=== PATIENT | female | born 1950 | race Caucasian/White ===

== ENCOUNTER 2017-01-23 19:55 | Emergency (ER) | payer MEDICARE, BC ==
[2017-01-23] MEDS ORDERED: oxyCODONE 5 MG Tab ONE ×2 (20:10→21:35)
[2017-01-23] MEDS ORDERED: HYDROmorphone 2 MG/ML Syringe SUBCUT ONE (20:25)
--- NOTE | 2017-01-23 20:31 | EDM.PDOC ---
ED HPI GENERAL MEDICAL PROBLEM - General Chief Complaint: General Stated Complaint: injured shoulder Time Seen by Provider: 01/23/17 20:10 Source of Information: Reports: Patient History Limitations: Reports: No Limitations - History of Present Illness INITIAL COMMENTS - FREE TEXT/NARRATIVE: According to patient she was working with her horses and the horse pushed her suddenly moving his back towards her, apparently pt was standing very close to his back. She lost control and landed on her right shoulder. She has severe pain and could not get up from the ground until her son came and helped her get up. She keep her arm adjacent to the chest wall and c/o pain in her right scapular region. No open wound, swelling or bruising around the shoulder. No other injuries. She has been able to walk, and does not have any lower back or lower extremity pain or injury. she does c/o numbness in her medial 4 finger over the dorsal aspect. No other injuries. Right Shoulder Pain Score (Numeric/FACES): 10 - Related Data Allergies Allergy/AdvReac Type Severity Reaction Status Date / Time morphine Allergy Cannot Verified 02/13/13 09:35 Remember sulfamethoxazole Allergy Rash Verified 02/13/13 09:35 [From ] trimethoprim [From ] Allergy Rash Verified 02/13/13 09:35 venom-honey bee Allergy Anaphylactic Verified 02/13/13 09:35 [bee venom (honey bee)] Shock ED ROS GENERAL - Review of Systems Review Of Systems: See Below Constitutional: Denies: Fever, Chills HEENT: Denies: Rhinitis, Throat Pain Respiratory: Denies: Cough, Sputum Cardiovascular: Denies: Chest Pain, Lightheadedness GI/Abdominal: Denies: Abdominal Pain, Nausea Musculoskeletal: Reports: Shoulder Pain (right), Back Pain (right upper), Muscle Pain. Denies: Leg Pain, Foot Pain, Muscle Stiffness Skin: Denies: Bruising, Pruritis, Rash Neurological: Denies: Confusion, Dizziness, Headache, Weakness ED EXAM, GENERAL - Physical Exam Exam: See Below Exam Limited By: No Limitations General Appearance: Alert, WD/WN, Moderate Distress (from pain) Eye Exam: Bilateral Eye: EOMI, PERRL Ears: Normal External Exam, Normal Canal, Hearing Grossly Normal, Normal TMs Nose: Normal Inspection, Normal Mucosa, No Blood Throat/Mouth: Normal Inspection, Normal Lips, Normal Teeth, Normal Gums, Normal Oropharynx, Normal Voice, No Airway Compromise Head: Atraumatic, Normocephalic Neck: Normal Inspection, Supple, Non-Tender, Full Range of Motion Respiratory/Chest: No Respiratory Distress, Lungs Clear, Normal Breath Sounds, No Accessory Muscle Use, Chest Non-Tender Cardiovascular: Normal Peripheral Pulses, Regular Rate, Rhythm, No Edema, No Gallop, No JVD, No Murmur, No Rub Extremities: Normal Inspection, Other (Right shoulder: there is no obvious deformity or swelling of the shoulder or the right upper back. Pt does hold her arm against her chest wall. refuses to move. She does have [facility] liaison. On palpation the humoral head is felt anteriorly in the axillar,she is tender over the scapular spine and the boduy of the scapula and the shoulder tip. No obvious crepitus felt. Pt does have soft tissue tenderness around the shoulder. ) Neurological: Alert, Oriented, CN II-XII Intact, Normal Cognition, Normal Gait, Normal Reflexes ED GENERAL MEDICAL PROCEDURES - Joint Reduction Site: Shoulder (R) Sedation: Conscious Sedation Pre-procedure NV status: Normal Post-procedure NV status: Normal Technique: Traction/Counter Traction Number of Attempts: 1 Post-Reduction Imaging: Completely Reduced Joint Reduction Complications: No Progress/Comments: Pt's rigth extremity placed in shoulder immobilizer. Course - Vital Signs Text/Narrative:: Xray right shoulder does shows anterior dislocation right shoulder with no fracture.After consent was obtained. Iv line was obtained and Normal drip started. Conscious sedation and reduction was discussed. Pt was placed on radiation monitor and also started on nasal canula oxygen at 2 liters per minute. 4mg of versed and 50MCG of fentanyl was used to get pt under good sedation. The joint was reduced with one attempt with a clunk. Post reduction Xray shows normal reduction and head of the humerus in place. Shoulder immobilizer applied. Once patient was awake and alert, Iv fluids and IV line was removed and planned for discharge. Pt Advised not to take the shoulder immobilizer off for 2 wks. Oxycodone 5mg 3 times daily as needed for pain. Okay to use motrin for pain, but should not have much pain now. Followup in clinic in 2 wks for recheck. Might need to start physiotherapy in 2 wks for shoulder strengthening. Advised not to ride horse until clear by physical therapy. Last Recorded V/S: Last Vital Signs Temp 96.8 F 01/23/17 20:28 Pulse 75 01/23/17 20:28 Resp 20 01/23/17 20:28 BP 177/93 H 01/23/17 20:28 Pulse Ox 100 01/23/17 20:28 - Orders/Labs/Meds Orders: Active Orders 24 hr Category Date Time Status Shoulder 1V Rt [CR] Stat Exams 01/23/17 20:25 Taken Shoulder Comp Rt [CR] Stat Exams 01/23/17 20:25 Taken Meds: Medications Discontinued Medications Generic Name Dose Route Start Last Admin Trade Name Micheline PRN Reason Stop Dose Admin Hydromorphone HCl 1 mg 01/23/17 20:25 Dilaudid SUBCUT 01/23/17 20:26 ONETIME ONE Oxycodone HCl Confirm 01/23/17 21:35 Oxycodone Administered 01/23/17 21:36 Dose 30 mg .ROUTE .STK-MED ONE Departure - Departure Time of Disposition: 21:45 Disposition: Home, Self-Care 01 Condition: Good Clinical Impression: Anterior dislocation of right shoulder - Discharge Information Forms: ED Department Discharge - Problem List & Annotations (1) Anterior dislocation of right shoulder SNOMED Code(s): 866436215 Code(s): S43.014A - ANTERIOR DISLOCATION OF RIGHT HUMERUS, INITIAL ENCOUNTER Status: Acute - Problem List Review Problem List Initiated/Reviewed/Updated: Yes - My Orders Last 24 Hours: My Active Orders 01/23/17 20:25 Shoulder 1V Rt [CR] Stat Shoulder Comp Rt [CR] Stat - Assessment/Plan Last 24 Hours: My Active Orders 01/23/17 20:25 Shoulder 1V Rt [CR] Stat Shoulder Comp Rt [CR] Stat Assessment:: Anterior dislocation of right shoulder Plan: Pt Advised not to take the shoulder immobilizer off for 2 wks. Oxycodone 5mg 3 times daily as needed for pain. Okay to use motrin for pain, but should not have much pain now. Followup in clinic in 2 wks for recheck. Might need to start physiotherapy in 2 wks for shoulder strengthening. Advised not to ride horse until clear by physical therapy.
[2017-01-23] MEDS ORDERED: fentaNYL 250 MCG/5 ML SDV ONE (20:35)
[2017-01-23] MEDS ORDERED: Midazolam 1 MG/ML 5 ML SDV ONE (20:35)
[2017-01-24] MEDS ORDERED: fentaNYL 250 MCG/5 ML SDV IVPUSH ONE (03:37)
[2017-01-24] MEDS ORDERED: Midazolam 1 MG/ML 10 ML MDV IVPUSH ONE (03:37)
--- NOTE | 2017-01-24 15:18 | CR ---
DATE OF SERVICE: 01/23/17 CLINICAL DATA: Fall. RIGHT SHOULDER: There is anterior dislocation of the glenohumeral joint with anterior and inferior dislocation of the humeral head with respect to the glenoid. I do not see any fractures. [id number] MTDD
--- NOTE | 2017-01-24 15:20 | CR ---
DATE OF SERVICE: 01/23/17 CLINICAL DATA: POST REDUCTION RIGHT SHOULDER: An oblique lateral view was performed. The glenohumeral dislocation has been reduced. The humeral head does appear to be in normal position with respect to the glenoid, however this is just a single view. [id number] MTDD
== END 2017-01-23 21:45 | disposition home or self-care (01) ==
LOC: LB.ED 19:55
DX: S43.014A Anterior dislocation of right humerus, initial encounter (principal); Z88.5 Allergy status to narcotic agent; Z88.2 Allergy status to sulfonamides; Z91.030 Bee allergy status; Z88.1 Allergy status to other antibiotic agents; W55.19XA Other contact with horse, initial encounter
CPT/HCPCS: 23650; 73020; 73030; 96374; 96375; 99283; A9270; J1170; J2250; J3010

== ENCOUNTER 2020-08-05 15:48 | Emergency (ER) | payer MEDICARE, BC ==
--- NOTE | 2020-08-05 16:33 | EDM.PDOC ---
ED HPI GENERAL MEDICAL PROBLEM - General Chief Complaint: General Stated Complaint: SWELLING IN LEGS Time Seen by Provider: 08/05/20 16:00 Source of Information: Reports: Patient History Limitations: Reports: No Limitations - History of Present Illness INITIAL COMMENTS - FREE TEXT/NARRATIVE: patient presented to the ER with a c/o b/l Leg swellings for the last several weeks, but got worse over the last 5-7 days. Denies SOB or CP. h/o DM, HTN and hypothyroidism. On blood pressure meds but no diuretics. Patient has recently underwent a minimal invasive back surgery for L5-S1 3 weeks ago and reports that it helped with her back pain. Also reports that she feels swelling in her abdomen, but no CP, SOB or abdominal pain. Admits that she sometimes feels palpitations on/off. No orthopnea or PND. No recent trip. Onset: Gradual Duration: Week(s): (4-6) Location: Reports: Lower Extremity, Left, Lower Extremity, Right Quality: Reports: Pressure Severity: Mild Improves with: Reports: None Worsens with: Reports: None Associated Symptoms: Reports: No Other Symptoms - Related Data Allergies Allergy/AdvReac Type Severity Reaction Status Date / Time morphine Allergy Cannot Verified 08/05/20 16:33 Remember sulfamethoxazole Allergy Rash Verified 08/05/20 16:33 [From ] trimethoprim [From ] Allergy Rash Verified 08/05/20 16:33 venom-honey bee Allergy Anaphylactic Verified 08/05/20 16:33 [bee venom (honey bee)] Shock Home Meds: Home Meds Acyclovir 400 mg PO BID 08/05/20 [History] Apixaban [Eliquis] 10 mg PO BID #14 tablet 08/05/20 [Rx] Calcium Carbonate [Calcium] 600 mg PO DAILY 08/05/20 [History] Cyanocobalamin (Vitamin B-12) [B-12] 1,000 mcg PO DAILY 08/05/20 [History] Gabapentin [Neurontin] 100 mg PO TID 08/05/20 [History] Ibuprofen 400 mg PO TID 08/05/20 [History] Levothyroxine [Synthroid] 100 mcg PO ACBREAKFAST 08/05/20 [History] Multivitamin/Iron/Folic Acid [Centrum Adults Tablet] 1 each PO DAILY 08/05/20 [History] Pantoprazole [ProTONIX] 40 mg PO DAILY 08/05/20 [History] Simvastatin 20 mg PO DAILY 08/05/20 [History] Vilazodone [Viibryd] 40 mg PO DAILY 08/05/20 [History] Zinc 50 mg PO DAILY 08/05/20 [History] amLODIPine [Norvasc] 5 mg PO DAILY 08/05/20 [History] hydroCHLOROthiazide [Hydrochlorothiazide] 12.5 mg PO DAILY #14 tablet 08/05/20 [Rx] lisinopriL [Lisinopril] 20 mg PO DAILY 08/05/20 [History] metFORMIN [Glucophage] 1,000 mg PO TID 08/05/20 [History] traZODone 50 mg PO BEDTIME 08/05/20 [History] Past Medical History Cardiovascular History: Reports: Hypertension Endocrine/Metabolic History: Reports: Diabetes, Type II, Hypothyroidism ED ROS GENERAL - Review of Systems Review Of Systems: See Below Constitutional: Reports: No Symptoms HEENT: Reports: No Symptoms Respiratory: Reports: No Symptoms Cardiovascular: Reports: Blood Pressure Problem, Edema, Palpitations. Denies: Chest Pain, Claudication, Lightheadedness, Orthopnea, PND, Syncope GI/Abdominal: Reports: No Symptoms : Reports: No Symptoms Musculoskeletal: Reports: No Symptoms Skin: Reports: No Symptoms Neurological: Reports: No Symptoms Psychiatric: Reports: No Symptoms ED EXAM, GENERAL - Physical Exam Exam: See Below Exam Limited By: No Limitations General Appearance: Alert, WD/WN, No Apparent Distress Eye Exam: Bilateral Eye: EOMI Head: Atraumatic Respiratory/Chest: No Respiratory Distress, Lungs Clear, Normal Breath Sounds Cardiovascular: Normal Peripheral Pulses GI/Abdominal: Normal Bowel Sounds, Soft, Non-Tender Back Exam: Normal Inspection, Full Range of Motion Extremities: Pedal Edema (b/l +1) Neurological: Alert, Oriented, No Motor/Sensory Deficits Skin Exam: Warm, Dry #1 Interpretation EKG Date: 08/05/20 Time: 16:55 Rhythm: NSR [place]: Normal P-Wave: Present QRS: Normal ST-T: Normal QT: Normal Course - Vital Signs Last Recorded V/S: Last Vital Signs Temp 37.0 C 08/05/20 17:01 Pulse 83 08/05/20 17:01 Resp 18 08/05/20 17:01 BP 125/76 08/05/20 17:01 Pulse Ox 98 08/05/20 17:01 - Orders/Labs/Meds Orders: Active Orders 24 hr Category Date Time Status EKG Documentation Completion [RC] ASDIRECTED Care 08/05/20 16:44 Active CULTURE URINE [RM] Urgent Lab 08/05/20 17:16 Received Labs: Laboratory Tests 08/05/20 08/05/20 08/05/20 Range/Units 17:00 17:00 17:00 WBC 7.0 (4.0-11.0) K/uL RBC 3.08 L (3.80-5.80) M/uL Hgb 9.8 L (11.5-16.5) g/dL Hct 31.1 L (37.0-47.0) % MCV 101 H (76-96) fL MCH 31.8 (27.0-32.0) pg MCHC 31.5 (31.0-35.0) g/dL RDW 12.7 (11.0-16.0) % Plt Count 317 (150-500) K/uL MPV 9.1 (6.0-10.0) fL D-Dimer, Quantitative 1590 H (0-400) ng/mL Sodium 144 (136-145) mmol/L Potassium 4.6 (3.5-5.1) mmol/L Chloride 108 H (98-107) mmol/L Carbon Dioxide 23.7 (21.0-32.0) mmol/L Anion Gap 16.9 H (5.0-15.0) mmol/L BUN 22 (8-26) mg/dL Creatinine 1.33 H (0.55-1.02) mg/dL Est Cr Clr Drug Dosing 35.92 mL/min Estimated GFR (MDRD) 40 L (>60) MLS/MIN BUN/Creatinine Ratio 16.5 (6-25) Glucose 117 H (74-100) mg/dL Hemoglobin A1c (< 5.7) % Calcium 8.8 (8.5-10.1) mg/dL Total Bilirubin 0.3 D (0.0-1.0) mg/dL AST 27 (15-37) U/L ALT 34 (12-78) U/L Alkaline Phosphatase 122 H (46-116) U/L Troponin I < 0.017 (0.000-0.060) ng/mL B-Natriuretic Peptide 478 H (0-125) pg/mL Total Protein 6.9 (6.4-8.2) g/dL Albumin 3.6 (3.4-5.0) g/dL Globulin 3.3 (2.2-4.2) g/dL Albumin/Globulin Ratio 1.1 (0.8-2.0) TSH, Ultra Sensitive 0.495 D (0.358-3.740) uIU/mL Urine Color Urine Appearance (CLEAR) Urine pH (5.0-8.0) Ur Specific [place] (1.003-1.030) Urine Protein (NEGATIVE) mg/dL Urine Glucose (UA) (NEGATIVE) mg/dL Urine Ketones (NEGATIVE) mg/dL Urine Occult Blood (NEGATIVE) Urine Nitrite (NEGATIVE) Urine Bilirubin (NEGATIVE) Urine Urobilinogen (0.2-1.0) E.U./dL Ur Leukocyte Esterase (NEGATIVE) Urine RBC /HPF Urine WBC /HPF Ur Squamous Epith Cells /HPF 08/05/20 08/05/20 Range/Units 17:00 17:16 WBC (4.0-11.0) K/uL RBC (3.80-5.80) M/uL Hgb (11.5-16.5) g/dL Hct (37.0-47.0) % MCV (76-96) fL MCH (27.0-32.0) pg MCHC (31.0-35.0) g/dL RDW (11.0-16.0) % Plt Count (150-500) K/uL MPV (6.0-10.0) fL D-Dimer, Quantitative (0-400) ng/mL Sodium (136-145) mmol/L Potassium (3.5-5.1) mmol/L Chloride (98-107) mmol/L Carbon Dioxide (21.0-32.0) mmol/L Anion Gap (5.0-15.0) mmol/L BUN (8-26) mg/dL Creatinine (0.55-1.02) mg/dL Est Cr Clr Drug Dosing mL/min Estimated GFR (MDRD) (>60) MLS/MIN BUN/Creatinine Ratio (6-25) Glucose (74-100) mg/dL Hemoglobin A1c 5.7 H (< 5.7) % Calcium (8.5-10.1) mg/dL Total Bilirubin (0.0-1.0) mg/dL AST (15-37) U/L ALT (12-78) U/L Alkaline Phosphatase (46-116) U/L Troponin I (0.000-0.060) ng/mL B-Natriuretic Peptide (0-125) pg/mL Total Protein (6.4-8.2) g/dL Albumin (3.4-5.0) g/dL Globulin (2.2-4.2) g/dL Albumin/Globulin Ratio (0.8-2.0) TSH, Ultra Sensitive (0.358-3.740) uIU/mL Urine Color Yellow Urine Appearance Clear (CLEAR) Urine pH 5.5 (5.0-8.0) Ur Specific [place] 1.025 (1.003-1.030) Urine Protein Negative (NEGATIVE) mg/dL Urine Glucose (UA) Negative (NEGATIVE) mg/dL Urine Ketones Negative (NEGATIVE) mg/dL Urine Occult Blood Negative (NEGATIVE) Urine Nitrite Negative (NEGATIVE) Urine Bilirubin Negative (NEGATIVE) Urine Urobilinogen 0.2 (0.2-1.0) E.U./dL Ur Leukocyte Esterase Trace H (NEGATIVE) Urine RBC Not seen /HPF Urine WBC 0-5 H /HPF Ur Squamous Epith Cells Occasional /HPF Meds: Medications Discontinued Medications Generic Name Dose Route Start Last Admin Trade Name Freq PRN Reason Stop Dose Admin Apixaban 10 mg 08/05/20 18:19 Apixaban 5 Mg Tab PO 08/05/20 18:20 ONETIME ONE Hydrochlorothiazide 12.5 mg 08/05/20 18:18 Hydrochlorothiazide 12.5 Mg Cap PO 08/05/20 18:19 NOW STA - Re-Assessments/Exams Free Text/Narrative Re-Assessment/Exam: vitals WNL EKG - NSR, no arrhythmias labs were ordered including CBC, CMP, TSH, TROP and Ddimer significant for elevation in Ddimer normal Trop and TSH. e/o chronic kidney disease. discussed with the patient that her LEs edema - can be attributed to multiple factors as followin- possible related to CHF: from the IVFs she received 3 weeks ago during her spinal surgery 2- possible DVT: related to recent surgery - being on OR table, also multiple long roads trip several times the last couple weeks for this reason - will do the followin- start taking diuretics HCTZ as prescribed 2- start Eliquis ( blood thinners ), and return on for US bilateral lower extremities to check for DVT. Then follow up with PCP for further recommendations Departure - Departure Time of Disposition: 18:30 Disposition: Home, Self-Care 01 Condition: Good Clinical Impression: CHF, Congestive heart failure, Elevated d-dimer, Edema of both lower legs - Discharge Information *PRESCRIPTION DRUG MONITORING PROGRAM REVIEWED*: Not Applicable *COPY OF PRESCRIPTION DRUG MONITORING REPORT IN PATIENT TANO: Not Applicable Prescriptions: Apixaban [Eliquis] 10 mg PO BID #14 tablet hydroCHLOROthiazide [Hydrochlorothiazide] 12.5 mg PO DAILY #14 tablet Referrals: PCP,None [Primary Care Provider] - Forms: ED Department Discharge Sepsis Event Note (ED) - Evaluation Sepsis Screening Result: No Definite Risk - Focused Exam Vital Signs: Vital Signs Temp Pulse Resp BP Pulse Ox 08/05/20 17:01 37.0 C 83 18 125/76 98 08/05/20 16:27 37.0 C 83 18 125/76 98 - Problem List & Annotations (1) CHF, Congestive heart failure SNOMED Code(s): 61201122 Code(s): I50.9 - HEART FAILURE, UNSPECIFIED Status: Acute Priority: Low Current Visit: Yes (2) Edema of both lower legs SNOMED Code(s): 917077812 Code(s): R60.0 - LOCALIZED EDEMA Status: Acute Priority: Low Current Visit: Yes (3) Elevated d-dimer SNOMED Code(s): 814251039 Code(s): R79.89 - OTHER SPECIFIED ABNORMAL FINDINGS OF BLOOD CHEMISTRY Status: Acute Priority: Low Current Visit: Yes - Problem List Review Problem List Initiated/Reviewed/Updated: Yes - My Orders Last 24 Hours: My Active Orders 08/05/20 16:44 EKG Documentation Completion [RC] ASDIRECTED 08/05/20 17:16 CULTURE URINE [RM] Urgent - Assessment/Plan Last 24 Hours: My Active Orders 08/05/20 16:44 EKG Documentation Completion [RC] ASDIRECTED 08/05/20 17:16 CULTURE URINE [RM] Urgent Plan: 1- start taking diuretics HCTZ as prescribed 2- start Eliquis ( blood thinners ), and return on for US bilateral lower extremities to check for DVT. 3- call the clinic tomorrow to pick a time for your ultra sounds and to make a follow up appointment with your PCP for further recommendations 4- return to the ER if any concerns or worsening of symptoms or shortness of breath
[2020-08-05 17:11] LABS: HEMOGLOBIN A1C 5.7 % (< 5.7)
[2020-08-05] MEDS ORDERED: Hydrochlorothiazide 12.5 MG Cap PO STA (18:18)
[2020-08-05] MEDS ORDERED: Apixaban 5 MG Tab PO ONE (18:19)
== END 2020-08-05 18:50 | disposition home or self-care (01) ==
LOC: LB.ED 15:48
DX: R60.0 Localized edema (principal); I11.0 Hypertensive heart disease with heart failure; I50.9 Heart failure, unspecified; E03.9 Hypothyroidism, unspecified; R79.89 Other specified abnormal findings of blood chemistry; E11.9 Type 2 diabetes mellitus without complications; Z88.6 Allergy status to analgesic agent; Z91.030 Bee allergy status; Z88.1 Allergy status to other antibiotic agents; Z79.01 Long term (current) use of anticoagulants; Z79.84 Long term (current) use of oral hypoglycemic drugs
CPT/HCPCS: 36415; 80053; 81001; 83036; 83880; 84443; 84484; 85027; 85379; 87086; 93005; 93010; 99284; 99285-25; A9270-GY

== ENCOUNTER 2021-09-20 11:19 | Inpatient (IN) | payer MEDICARE, BC ==
[2021-09-20] MEDS ORDERED: cefTRIAXone 1 GM in Sodium Chloride 0.9% 50 ML IV ONE (12:28)
[2021-09-20] MEDS ORDERED: Diltiazem 25 MG/5 ML SDV IVPUSH ONE (12:29)
[2021-09-20] MEDS: Sodium Chloride 0.9% 1,000 ML IV SCH (12:30)
[2021-09-20 12:37] LABS: ESTIMATED GFR 33 mL/min (>60)
[2021-09-20] MEDS: Diltiazem 100 MG in Sodium Chloride 0.9% 100 ML IV SCH ×2 (13:00→22:45)
[2021-09-20] MEDS ORDERED: cefTRIAXone 1 GM Vial ONE (13:22)
[2021-09-20] MEDS ORDERED: Ondansetron 4 MG/2 ML SDV IV PRN (16:22)
[2021-09-20] MEDS ORDERED: Glucagon,Human Recombinant 1 MG Vial IM PRN (16:46)
[2021-09-20] MEDS ORDERED: 50% Dextrose in Water 50 ML Syringe IVPUSH PRN (16:46)
[2021-09-20] MEDS: Insulin Regular, Human 100 Units/ML 3 ML Vial SUBCUT SCH ×2 (18:47→22:14)
[2021-09-20] MEDS ORDERED: LORazepam 2 MG/ML SDV IV SCH (19:15)
[2021-09-20] MEDS ORDERED: LORazepam 1 MG Tab PO ONE ×2 (19:50→22:15)
[2021-09-20] MEDS ORDERED: LORazepam 1 MG Tab ONE (19:50)
[2021-09-20] MEDS: Gabapentin 100 MG Cap PO SCH (19:55)
[2021-09-20] MEDS: Thiamine 100 MG Tab PO SCH (19:55)
[2021-09-20] MEDS: Acyclovir 400 MG Tab PO SCH (19:55)
[2021-09-21] MEDS: Insulin Regular, Human 100 Units/ML 3 ML Vial SUBCUT SCH ×5 (00:25→20:39)
[2021-09-21] MEDS: LORazepam 1 MG Tab PO SCH ×3 (00:40→20:27)
[2021-09-21] MEDS: Diltiazem 100 MG in Sodium Chloride 0.9% 100 ML IV SCH ×2 (05:57→13:30)
[2021-09-21] MEDS: Sodium Chloride 0.9% 1,000 ML IV SCH (06:16)
[2021-09-21] MEDS: Pantoprazole 40 MG Tab.CR PO SCH (06:45)
[2021-09-21] MEDS: Levothyroxine 100 MCG Tab PO SCH (06:47)
[2021-09-21] MEDS ORDERED: Furosemide 20 MG Tab PO SCH (08:00)
[2021-09-21] MEDS ORDERED: Apixaban 5 MG Tab PO SCH (08:00)
[2021-09-21] MEDS: Cyanocobalamin (Vitamin B12) 1,000 MCG Tab PO SCH (08:49)
[2021-09-21] MEDS: cefTRIAXone 1 GM in Sodium Chloride 0.9% 50 ML IV SCH (08:49)
[2021-09-21] MEDS: Acyclovir 400 MG Tab PO SCH ×2 (08:49→20:28)
[2021-09-21] MEDS: Zinc (Zinc Gluconate) 50 MG Tab PO SCH (08:49)
[2021-09-21] MEDS: Gabapentin 100 MG Cap PO SCH ×3 (08:50→20:30)
[2021-09-21] MEDS: Thiamine 100 MG Tab PO SCH (08:50)
[2021-09-21] MEDS: Simvastatin 20 MG Tab PO SCH (08:50)
[2021-09-21] MEDS: Lisinopril 20 MG Tab PO SCH (08:50)
[2021-09-21] MEDS: Multivitamins with Iron/Calcium/Folic Acid/Minerals Tab PO SCH (08:50)
[2021-09-21] MEDS: Calcium Carbonate 600 MG Tab PO SCH (08:50)
[2021-09-21] MEDS: Apixaban 5 MG Tab PO SCH ×2 (13:00→20:38)
[2021-09-21] MEDS: Lactobacillus Acidophilus/Lactobacillus Sporogenes (Probiotic) Tab PO SCH (14:02)
[2021-09-21] MEDS: Metoprolol Tartrate 25 MG Tab PO SCH ×2 (14:03→20:29)
[2021-09-21] MEDS: Furosemide 40 MG Tab PO SCH (16:33)
[2021-09-22] MEDS: Sodium Chloride 0.9% 1,000 ML IV SCH (07:30)
[2021-09-22] MEDS: Simvastatin 20 MG Tab PO SCH (07:40)
[2021-09-22] MEDS: Zinc (Zinc Gluconate) 50 MG Tab PO SCH (07:40)
[2021-09-22] MEDS: Levothyroxine 100 MCG Tab PO SCH (07:40)
[2021-09-22] MEDS: Cyanocobalamin (Vitamin B12) 1,000 MCG Tab PO SCH (07:41)
[2021-09-22] MEDS: Furosemide 40 MG Tab PO SCH ×2 (07:41→15:30)
[2021-09-22] MEDS: Gabapentin 100 MG Cap PO SCH ×3 (07:41→20:04)
[2021-09-22] MEDS: Acyclovir 400 MG Tab PO SCH ×2 (07:41→20:04)
[2021-09-22] MEDS: Lisinopril 20 MG Tab PO SCH (07:41)
[2021-09-22] MEDS: Lactobacillus Acidophilus/Lactobacillus Sporogenes (Probiotic) Tab PO SCH (07:41)
[2021-09-22] MEDS: Thiamine 100 MG Tab PO SCH (07:41)
[2021-09-22] MEDS: Pantoprazole 40 MG Tab.CR PO SCH (07:41)
[2021-09-22] MEDS: Metoprolol Tartrate 25 MG Tab PO SCH ×2 (07:42→20:04)
[2021-09-22] MEDS: cefTRIAXone 1 GM in Sodium Chloride 0.9% 50 ML IV SCH (07:42)
[2021-09-22] MEDS: Calcium Carbonate 600 MG Tab PO SCH (07:42)
[2021-09-22] MEDS: Multivitamins with Iron/Calcium/Folic Acid/Minerals Tab PO SCH (07:42)
[2021-09-22] MEDS: Apixaban 5 MG Tab PO SCH ×2 (08:03→20:04)
[2021-09-22] MEDS: Insulin Regular, Human 100 Units/ML 3 ML Vial SUBCUT SCH ×4 (09:03→23:06)
[2021-09-22] MEDS: Diltiazem 100 MG in Sodium Chloride 0.9% 100 ML IV SCH (11:06)
[2021-09-22] MEDS: Acetaminophen 325 MG Tab PO PRN ×2 (11:12→20:05)
[2021-09-22] MEDS: Non-Formulary Medication 1 Each (Vilazodone [Viibryd] 40 MG Tablet) PO SCH ×3 (13:01→13:04)
[2021-09-22] MEDS: Diltiazem IR 60 MG Tab PO SCH ×2 (14:45→20:03)
[2021-09-22] MEDS ORDERED: predniSONE 20 MG Tab ONE (15:28)
[2021-09-22] MEDS: predniSONE 20 MG Tab PO SCH (15:30)
[2021-09-22] MEDS: Amoxicillin/Clavulanate K 875-125 MG Tab PO SCH (20:05)
[2021-09-22] MEDS ORDERED: Glucagon,Human Recombinant 1 MG Vial IM PRN ×2 (20:31→23:08)
[2021-09-22] MEDS ORDERED: 50% Dextrose in Water 50 ML Syringe IVPUSH PRN ×2 (20:31→23:08)
[2021-09-22] MEDS ORDERED: Insulin Regular, Human 100 Units/ML 3 ML Vial SUBCUT ONE ×2 (20:31→23:08)
[2021-09-23] MEDS: Diltiazem IR 60 MG Tab PO SCH ×4 (03:39→19:51)
[2021-09-23] MEDS: Insulin Regular, Human 100 Units/ML 3 ML Vial SUBCUT SCH ×4 (08:12→20:12)
[2021-09-23] MEDS: Cyanocobalamin (Vitamin B12) 1,000 MCG Tab PO SCH (08:24)
[2021-09-23] MEDS: Metoprolol Tartrate 25 MG Tab PO SCH ×2 (08:27→19:52)
[2021-09-23] MEDS: Acyclovir 400 MG Tab PO SCH ×2 (08:28→19:50)
[2021-09-23] MEDS: Lactobacillus Acidophilus/Lactobacillus Sporogenes (Probiotic) Tab PO SCH (08:28)
[2021-09-23] MEDS: Furosemide 40 MG Tab PO SCH ×2 (08:28→16:13)
[2021-09-23] MEDS: Amoxicillin/Clavulanate K 875-125 MG Tab PO SCH ×2 (08:29→19:51)
[2021-09-23] MEDS: Multivitamins with Iron/Calcium/Folic Acid/Minerals Tab PO SCH (08:29)
[2021-09-23] MEDS: Simvastatin 20 MG Tab PO SCH (08:30)
[2021-09-23] MEDS: Thiamine 100 MG Tab PO SCH (08:32)
[2021-09-23] MEDS: Gabapentin 100 MG Cap PO SCH ×3 (08:32→19:50)
[2021-09-23] MEDS: Apixaban 5 MG Tab PO SCH ×2 (08:32→19:51)
[2021-09-23] MEDS: Lisinopril 20 MG Tab PO SCH (08:33)
[2021-09-23] MEDS: predniSONE 20 MG Tab PO SCH (08:34)
[2021-09-23] MEDS: Calcium Carbonate 600 MG Tab PO SCH (08:34)
[2021-09-23] MEDS: Levothyroxine 100 MCG Tab PO SCH (08:35)
[2021-09-23] MEDS: Zinc (Zinc Gluconate) 50 MG Tab PO SCH (08:36)
[2021-09-23] MEDS: Pantoprazole 40 MG Tab.CR PO SCH (08:37)
[2021-09-23] MEDS: Non-Formulary Medication 1 Each (Vilazodone [Viibryd] 40 MG Tablet) PO SCH (08:38)
[2021-09-23] MEDS ORDERED: Metoprolol Tartrate 25 MG Tab PO ONE (12:05)
[2021-09-23 12:29] LABS: HEMOGLOBIN A1C 7.7 % (< 5.7)
[2021-09-23] MEDS: Acetaminophen 325 MG Tab PO PRN ×2 (12:40→19:54)
[2021-09-23] MEDS ORDERED: Nitroglycerin 0.4 MG Tab.SL SL PRN (13:49)
[2021-09-23] MEDS ORDERED: Azithromycin 500 MG Tab PO ONE (16:00)
[2021-09-23] MEDS ORDERED: Ibuprofen 400 MG Tab ONE (23:23)
[2021-09-23] MEDS: Ibuprofen 400 MG Tab PO ONE (23:25)
[2021-09-24] MEDS: Diltiazem IR 60 MG Tab PO SCH (03:15)
[2021-09-24] MEDS: Ibuprofen 400 MG Tab PO ONE (06:36)
[2021-09-24] MEDS ORDERED: Ibuprofen 400 MG Tab ONE (06:40)
[2021-09-24] MEDS: Pantoprazole 40 MG Tab.CR PO SCH (07:11)
[2021-09-24] MEDS: Levothyroxine 100 MCG Tab PO SCH (07:11)
[2021-09-24] MEDS ORDERED: Azithromycin 500 MG Tab PO SCH (08:00)
[2021-09-24] MEDS ORDERED: Diltiazem 240 MG Cap.ER PO SCH (08:00)
[2021-09-24] MEDS ORDERED: Azithromycin 250 MG Tab PO SCH (08:00)
[2021-09-24] MEDS: Zinc (Zinc Gluconate) 50 MG Tab PO SCH (08:20)
[2021-09-24] MEDS: Cyanocobalamin (Vitamin B12) 1,000 MCG Tab PO SCH (08:20)
[2021-09-24] MEDS: Simvastatin 20 MG Tab PO SCH (08:20)
[2021-09-24] MEDS: Apixaban 5 MG Tab PO SCH (08:20)
[2021-09-24] MEDS: Calcium Carbonate 600 MG Tab PO SCH (08:21)
[2021-09-24] MEDS: Metoprolol Tartrate 25 MG Tab PO SCH (08:21)
[2021-09-24] MEDS: Amoxicillin/Clavulanate K 875-125 MG Tab PO SCH (08:21)
[2021-09-24] MEDS: Thiamine 100 MG Tab PO SCH (08:21)
[2021-09-24] MEDS: Lactobacillus Acidophilus/Lactobacillus Sporogenes (Probiotic) Tab PO SCH (08:21)
[2021-09-24] MEDS: Gabapentin 100 MG Cap PO SCH (08:21)
[2021-09-24] MEDS: Acyclovir 400 MG Tab PO SCH (08:21)
[2021-09-24] MEDS: Multivitamins with Iron/Calcium/Folic Acid/Minerals Tab PO SCH (08:22)
[2021-09-24] MEDS: Furosemide 40 MG Tab PO SCH (08:22)
[2021-09-24] MEDS: Non-Formulary Medication 1 Each (Vilazodone [Viibryd] 40 MG Tablet) PO SCH (08:25)
[2021-09-24] MEDS: Insulin Regular, Human 100 Units/ML 3 ML Vial SUBCUT SCH (08:41)
== END 2021-09-24 11:35 | disposition home or self-care (01) | DRG 308 ==
LOC: LB.ED 11:19 → LB.MS 13:47 → UNDOADMIN 14:36 → LB.MS 09-21 14:19
PROVIDERS: ADMIT Nurse Practitioner Family; ATTEND Nurse Practitioner Family
DX: R06.02 Shortness of breath (principal); R05.9 Cough, unspecified; I48.91 Unspecified atrial fibrillation; J18.9 Pneumonia, unspecified organism; E11.9 Type 2 diabetes mellitus without complications; I10 Essential (primary) hypertension; E03.9 Hypothyroidism, unspecified; H66.91 Otitis media, unspecified, right ear; Z88.8 Allergy status to other drugs, medicaments and biological substances; J02.9 Acute pharyngitis, unspecified; I11.0 Hypertensive heart disease with heart failure; Z79.01 Long term (current) use of anticoagulants; Z79.84 Long term (current) use of oral hypoglycemic drugs; Z79.890 Hormone replacement therapy; Z79.899 Other long term (current) drug therapy; Z20.822 Contact with and (suspected) exposure to COVID-19; I50.9 Heart failure, unspecified; Z88.5 Allergy status to narcotic agent; Z88.2 Allergy status to sulfonamides; Z91.030 Bee allergy status
CPT/HCPCS: 36415; 71045; 71250; 80048; 80053; 81003; 82947; 83036; 83605; 83880; 84484; 85025; 85379; 87040; 87070; 93005; 93010; 96374; 96375; 99222; 99231; 99232; 99238; 99285-25; A9270-GY; J0696; J1815-GY; J3490; J7030; J7512; U0002

== ENCOUNTER 2021-09-27 21:38 | Inpatient (IN) | payer MEDICARE, BC ==
[2021-09-27] MEDS ORDERED: Sodium Chloride 0.9% 1,000 ML IV ONE (21:55)
[2021-09-27] MEDS ORDERED: Sodium Chloride 0.9% 250 ML IV SCH (23:00)
[2021-09-28] MEDS ORDERED: Sodium Chloride 0.45% with KCl 1,000 ML IV SCH
[2021-09-28] MEDS: Sodium Chloride 0.45% 1,000 ML IV SCH ×2 (00:40→04:20)
[2021-09-28] MEDS ORDERED: Potassium Chloride 20 MEQ Tab.ER ONE (00:44)
[2021-09-28] MEDS: Potassium Chloride 20 MEQ Tab.ER PO SCH ×2 (01:08→07:07)
[2021-09-28] MEDS ORDERED: Sodium Chloride 0.9% 10 ML Syringe FLUSH PRN (02:50)
[2021-09-28] MEDS ORDERED: Dextrose 5%-0.45% NaCl 1,000 ML IV SCH (05:30)
[2021-09-28] MEDS ORDERED: Piperacillin/Tazobactam 3.375 GM in Sodium Chloride 0.9% 100 ML IV SCH (08:00)
[2021-09-28] MEDS ORDERED: Glucagon,Human Recombinant 1 MG Vial IM PRN (08:02)
[2021-09-28] MEDS ORDERED: Insulin Regular, Human 100 Units/ML 3 ML Vial SUBCUT ONE (08:02)
[2021-09-28] MEDS ORDERED: 50% Dextrose in Water 50 ML Syringe IVPUSH PRN (08:02)
[2021-09-28] MEDS ORDERED: Sodium Chloride 0.45% 1,000 ML IV SCH (08:15)
== END 2021-09-28 08:55 | DRG 638 ==
LOC: LB.ED 21:38 → LB.MS 23:00 → UNDOADMIN 23:07 → LB.MS 23:07 → UNDODISIN 09-28 08:55
PROVIDERS: ADMIT Surgery; ATTEND Surgery
DX: E11.10 Type 2 diabetes mellitus with ketoacidosis without coma (principal); E10.10 Type 1 diabetes mellitus with ketoacidosis without coma; I48.20 Chronic atrial fibrillation, unspecified; N17.9 Acute kidney failure, unspecified; I95.9 Hypotension, unspecified; I50.9 Heart failure, unspecified; E03.9 Hypothyroidism, unspecified; F32.A Depression, unspecified; E86.0 Dehydration; Z20.822 Contact with and (suspected) exposure to COVID-19; S43.006A Unspecified dislocation of unspecified shoulder joint, initial encounter; I11.0 Hypertensive heart disease with heart failure; Z88.5 Allergy status to narcotic agent; Z79.01 Long term (current) use of anticoagulants; Z88.2 Allergy status to sulfonamides; Z88.8 Allergy status to other drugs, medicaments and biological substances; Z79.890 Hormone replacement therapy; Z79.899 Other long term (current) drug therapy; Z91.030 Bee allergy status; I25.2 Old myocardial infarction
CPT/HCPCS: 36415; 51702; 71045; 80053; 81001; 82947; 83605; 83735; 84100; 84443; 84484; 85025; 99222; 99238; A9270-GY; J2543; J3480; J3490; J7030; J7042; U0002

== ENCOUNTER 2024-04-27 07:15 | Day surgery (SDC) | payer MEDICARE, BC ==
[2024-04-27] MEDS: Sodium Chloride 0.9% 1,000 ML IV SCH (07:51)
[2024-04-27] MEDS ORDERED: Propofol 200 MG/20 ML SDV ONE (08:45)
[2024-04-27 09:49] LABS: BASOPHILS ABSOLUTE AUTO 0.04 K/uL (0.02-0.10); BASOPHILS PERCENT AUTO 1.3 % (0.0-0.5); EOSINOPHILS ABSOLUTE AUTO 0.24 K/uL (0.04-0.40); EOSINOPHILS PERCENT AUTO 7.6 % (1.0-5.0); HEMATOCRIT 26.8 % (37.0-47.0); LYMPHOCYTES ABSOLUTE AUTO 0.55 K/uL (1.50-4.00); LYMPHOCYTES PERCENT AUTO 17.5 % (20.0-40.0); MEAN CORPUSCULAR HEMOGLOBIN 24.8 pg (27.0-32.0); MEAN CORPUSCULAR HGB CONC 29.9 g/dL (31.0-35.0); MEAN CORPUSCULAR VOLUME 83 fL (76-96); MEAN PLATELET VOLUME 8.7 fL (6.0-10.0); MONOCYTES ABSOLUTE AUTO 0.47 K/uL (0.20-0.80); NEUTROPHILS ABSOLUTE AUTO 1.84 K/uL (2.00-7.50); NEUTROPHILS PERCENT AUTO 58.6 % (45.0-70.0); RED BLOOD CELL COUNT 3.23 M/uL (3.80-5.80); RED CELL DISTRIBUTION WIDTH 20.1 % (11.0-16.0); WHITE BLOOD CELL COUNT,WBC 3.1 K/uL (4.0-11.0)
[2024-04-27 09:50] LABS: PLATELET COUNT,PLT 87 K/uL (150-500)
== END 2024-04-27 10:40 | disposition home or self-care (01) ==
LOC: LB.SDS 07:15
PROVIDERS: ATTEND Surgery
DX: K29.51 Unspecified chronic gastritis with bleeding (principal); I12.9 Hypertensive chronic kidney disease with stage 1 through stage 4 chronic kidney disease, or unspecified chronic kidney disease; N18.9 Chronic kidney disease, unspecified; D64.9 Anemia, unspecified
CPT/HCPCS: 36415; 82947; 85025; J2704; J7030